=== PATIENT | male | born 1985 | race Caucasian/White ===

== ENCOUNTER 2017-07-08 19:45 | Emergency (ER) | payer OTHER ==
[~2017-07-08] VITALS: Ht 180.3 cm; Wt 96.9 kg
[~2017-07-08 19:45] MED LIST: FLEXERIL10 MG PO; NAPROSYN500 MG PO; NORCO 5/3251 TABLET PO
[2017-07-08 20:17] LABS: HEMATOCRIT 45.4 % (38.0-50.0); MCH 30.2 PG (29.0-34.0); MCHC 35.2 G/DL (30.0-36.0); MCV 85.8 FL (86-99); PLATELET COUNT 237 K/uL (156-360); RBC DIS.WIDTH-CV 12.4 % (11.8-14.6); RBC DIS.WIDTH-SD 38.7 % (39-53); RED BLOOD COUNT 5.29 M/uL (4.00-5.50); WHITE BLOOD COUNT 9.2 K/uL (4.1-10.2)
[2017-07-08 20:30] LABS: ALBUMIN 4.2 g/dL (3.2-4.8); CHLORIDE 105 mEq/L (99-109); POTASSIUM 4.1 mEq/L (3.7-5.4); SODIUM 141 mEq/L (136-147)
[2017-07-08 20:33] LABS: GLUCOSE 96 mg/dL (70-99); TOTAL PROTEIN 7.1 g/dL (6.4-8.3)
[2017-07-08 20:35] LABS: TOTAL BILIRUBIN 0.8 mg/dL (0.0-1.0)
[2017-07-08 20:36] LABS: ALKALINE PHOSPHATASE 83 IU/L (3-129); CREATININE 0.9 mg/dL (0.6-1.3); GFR ESTIMATE (CALCULATED) > 59 mL/min/ (58.99-99999)
[2017-07-08 20:38] LABS: AST (GOT) 20 IU/L (2-34); UREA NITROGEN (BUN) 14 mg/dL (9-23)
[2017-07-08 20:39] LABS: ALT (GPT) 32 IU/L (3-49)
[2017-07-08 20:40] LABS: LIPASE 44 U/L (1.0-51.0)
[2017-07-08 20:49] LABS: APPEARANCE CLEAR ((CLEAR)); BILIRUBIN NEGATIVE; BLOOD NEGATIVE; COLOR YELLOW ((YELLOW)); GLUCOSE (STRIP) NEGATIVE; KETONES NEGATIVE; LEUKOCYTES NEGATIVE; NITRITE NEGATIVE; PROTEIN (STRIP) NEGATIVE; SPECIFIC GRAVITY 1.028 (1.000-1.030); UCUL ADDED? NO; UROBILINOGEN 0.2 MG/DL (0.2-1.0)
[2017-07-08] MEDS ORDERED: BENTYL10 MG PO (21:06)
[2017-07-08] MEDS ORDERED: COLACE100 MG PO (21:06)
[2017-07-08 21:34] VITALS: BP 129/107
== END 2017-07-08 21:36 | disposition home or self-care (01) ==
LOC: RME 19:45 → EME 19:45 → RME 21:36
PROVIDERS: Physician Assistant
DX: R10.31 Right lower quadrant pain (principal); F17.200 Nicotine dependence, unspecified, uncomplicated
CPT/HCPCS: 74176; 80053; 81003; 83690; 85027; 99281; 99284; J1885

== ENCOUNTER 2017-09-21 22:18 | Emergency (ER) | payer OTHER ==
[~2017-09-21] VITALS: Ht 180.3 cm; Wt 101.0 kg
[~2017-09-21 22:18] MED LIST changes: +BENTYL10 MG PO; +COLACE100 MG PO
[2017-09-21 23:48] VITALS: BP 150/98
== END 2017-09-21 23:55 | disposition home or self-care (01) ==
LOC: EME 22:18
DX: S93.401A Sprain of unspecified ligament of right ankle, initial encounter (principal); W18.30XA Fall on same level, unspecified, initial encounter; Y93.51 Activity, roller skating (inline) and skateboarding
CPT/HCPCS: 73610; 99281; 99284

== ENCOUNTER 2017-10-12 16:50 | Emergency (ER) | payer OTHER ==
[~2017-10-12] VITALS: Ht 154.9 cm; Wt 99.1 kg
[2017-10-12 19:03] LABS: APPEARANCE CLEAR ((CLEAR)); BILIRUBIN NEGATIVE; BLOOD NEGATIVE; COLOR YELLOW ((YELLOW)); GLUCOSE (STRIP) NEGATIVE; KETONES NEGATIVE; LEUKOCYTES NEGATIVE; NITRITE NEGATIVE; PROTEIN (STRIP) NEGATIVE; SPECIFIC GRAVITY 1.025 (1.000-1.030); UCUL ADDED? NO; UROBILINOGEN 0.2 MG/DL (0.2-1.0)
[2017-10-12 19:24] LABS: HEMATOCRIT 47.1 % (38.0-50.0); HEMOGLOBIN 16.6 G/DL (12.5-16.6); MCH 29.8 PG (29.0-34.0); MCHC 35.2 G/DL (30.0-36.0); MCV 84.6 FL (86-99); PLATELET COUNT 261 K/uL (156-360); RBC DIS.WIDTH-CV 12.4 % (11.8-14.6); RED BLOOD COUNT 5.57 M/uL (4.00-5.50); WHITE BLOOD COUNT 9.5 K/uL (4.1-10.2)
[2017-10-12 19:36] LABS: ALBUMIN 4.5 g/dL (3.2-4.8)
[2017-10-12 19:37] LABS: CHLORIDE 104 mEq/L (99-109); POTASSIUM 4.3 mEq/L (3.7-5.4); SODIUM 141 mEq/L (136-147)
[2017-10-12 19:39] LABS: GLUCOSE 89 mg/dL (70-99); TOTAL PROTEIN 7.7 g/dL (6.4-8.3)
[2017-10-12 19:42] LABS: ALKALINE PHOSPHATASE 87 IU/L (3-129)
[2017-10-12 19:43] LABS: CREATININE 0.8 mg/dL (0.6-1.3); GFR ESTIMATE (CALCULATED) > 59 mL/min/ (58.99-99999)
[2017-10-12 19:44] LABS: AST (GOT) 21 IU/L (2-34); UREA NITROGEN (BUN) 9 mg/dL (9-23)
[2017-10-12 19:45] LABS: ALT (GPT) 29 IU/L (3-49)
[2017-10-12] MEDS ORDERED: NAPROSYN500 MG PO (20:55)
[2017-10-12] MEDS ORDERED: LIDODERM 5% P1 PATCH TD (20:55)
[2017-10-12 21:02] VITALS: BP 138/91
== END 2017-10-12 21:03 | disposition home or self-care (01) ==
LOC: EME 16:50
PROVIDERS: Physician Assistant Medical
DX: R10.9 Unspecified abdominal pain (principal); R30.0 Dysuria; N20.0 Calculus of kidney
CPT/HCPCS: 74176; 80053; 81003; 85027; J1885

== ENCOUNTER 2017-10-20 22:29 | Emergency (ER) | payer OTHER ==
[~2017-10-20] VITALS: Ht 180.3 cm; Wt 101.1 kg
[~2017-10-20 22:29] MED LIST changes: +LIDODERM 5% P1 PATCH TD
[2017-10-20 23:49] VITALS: BP 136/103
== END 2017-10-20 23:50 | disposition home or self-care (01) ==
LOC: EME 22:29
DX: K52.9 Noninfective gastroenteritis and colitis, unspecified (principal); Z02.79 Encounter for issue of other medical certificate
CPT/HCPCS: 99281; 99283